=== PATIENT | female | born 1955 | race Caucasian/White ===

== ENCOUNTER 2019-03-18 07:46 | Emergency (ER) | payer BC, OTHER ==
[~2019-03-18] VITALS: Ht 162.6 cm; Wt 75.7 kg
[2019-03-18 08:33] LABS: BASOPHIL % 0.3 % (0-2); PLATELET COUNT 272 x10^3mcL (130-400); RED CELL DISTRIBUTION WIDTH 14.1 % (11.5-14.5)
[2019-03-18 08:50] LABS: CALCIUM 9.1 mg/dL (8.5-10.1); CARBON DIOXIDE 25.3 mmol/L (21-32); CHLORIDE SERUM 96 mmol/L (98-107); CREATININE SERUM 0.8 mg/dL (0.6-1.0); GFR1 > 60 mL/min; GLUCOSE SERUM 123 mg/dL (74-106); POTASSIUM SERUM 4.5 mmol/L (3.5-5.1); SODIUM SERUM 132 mmol/L (136-145)
[2019-03-18 08:55] LABS: ALBUMIN 4.3 g/dL (3.4-5.0); ALKALINE PHOSPHATASE 75 U/L (46-116); ALT/SGPT 27 U/L (14-59); AST/SGOT 21 U/L (15-37); BILIRUBIN TOTAL 0.5 mg/dL (0.20-1.00); TOTAL PROTEIN, SERUM 7.7 g/dL (6.4-8.2)
[2019-03-18 10:21] LABS: UA SPECIFIC GRAVITY <=1.005 (1.005-1.035); microscopic required? YES; urine erythrocyte 1+ (NEGATIVE)
[2019-03-18 10:50] VITALS: BP 121/55
[2019-03-19] MEDS ORDERED: SULFAMETHOXAZOL1 TA3 PO (05:13)
[2019-03-19] MEDS ORDERED: ZESTRIL20 MG PO (05:13)
[2019-03-19] MEDS ORDERED: LANSOPRAZOLE30 M2 PO (05:13)
== END 2019-03-18 10:50 | disposition home or self-care (01) ==
LOC: ED 07:46
PROVIDERS: Emergency Medicine
DX: N39.0 Urinary tract infection, site not specified (principal); K29.70 Gastritis, unspecified, without bleeding; I10 Essential (primary) hypertension; Z98.51 Tubal ligation status; Z98.890 Other specified postprocedural states; Z88.0 Allergy status to penicillin
CPT/HCPCS: 36415; J1885; Q0162

== ENCOUNTER 2019-03-19 00:42 | Inpatient (IN) | payer BC, OTHER ==
[~2019-03-19] VITALS: Ht 154.9 cm; Wt 58.1 kg
[2019-03-19 00:46] VITALS: Ht 154.9 cm; Wt 58.1 kg
--- NOTE | 2019-03-19 00:53 | NUR ---
PT CAME TO ED CO UTI SYMPTOMS. PT STS SHE WAS SEEN HERE THIS MORNING. PT STS SHE FELLS LIKE SHE HAS TO "GO" BUT ONLY A FEW DROPS COMES OUT. PT STS SYMPTOMS START AFTER STARTING ABX. PT STS SHE HAS ABD PAIN ACCOMPANIED BY VOMITING, AFTER TAKING NORCO. NO S/S OF DISTRESS. RESP E/U. DR. TINOCO AT BEDSIDE FOR MSE. COMFORT MEASURES IMPLEMENTED. WILL CONTINUE TO MONITOR.
[2019-03-19 01:30] LABS: BASOPHIL % 0.4 % (0-2); PLATELET COUNT 233 x10^3mcL (130-400); RED CELL DISTRIBUTION WIDTH 12.8 % (11.5-14.5)
[2019-03-19 01:40] LABS: CALCIUM 8.5 mg/dL (8.5-10.1); CARBON DIOXIDE 23.3 mmol/L (21-32); CHLORIDE SERUM 93 mmol/L (98-107); CREATININE SERUM 0.8 mg/dL (0.6-1.0); GFR1 > 60 mL/min; GLUCOSE SERUM 133 mg/dL (74-106); POTASSIUM SERUM 3.7 mmol/L (3.5-5.1); SODIUM SERUM 127 mmol/L (136-145)
[2019-03-19 01:46] LABS: ALBUMIN 3.9 g/dL (3.4-5.0); ALKALINE PHOSPHATASE 65 U/L (46-116); ALT/SGPT 26 U/L (14-59); AST/SGOT 19 U/L (15-37); BILIRUBIN TOTAL 0.47 mg/dL (0.20-1.00); LIPASE 120 IU/L (73-393); TOTAL PROTEIN, SERUM 6.8 g/dL (6.4-8.2)
--- NOTE | 2019-03-19 02:07 | NUR ---
PT PROVIDED SOCKS AND A WARM BLANKET FOR COMFORT. NO S/S OF DISTRESS. RESP E/U. PT STS SHE IS FEELING A LITTLE BETTER AFTER INFUSION OF SOME OF THE FLUIDS. WILL CONTINUE TO MONITOR.
--- NOTE | 2019-03-19 04:29 | NUR ---
BLADDER SCAN PREFORMED 202ML IN BLADDER.
--- NOTE | 2019-03-19 04:44 | NUR ---
PT MEDICATED PER ORDER. PT VERBALIZED UNDERSTANDING OF MEDICATION TEACHING. SEE EMAR FOR DETAILS.
[2019-03-19] MEDS ORDERED: SULFAMETHOXAZOL1 TA3 PO (05:13)
[2019-03-19] MEDS ORDERED: ZESTRIL20 MG PO (05:13)
[2019-03-19] MEDS ORDERED: LANSOPRAZOLE30 M2 PO (05:13)
[2019-03-19 05:50] LABS: CHOLESTEROL/HDL RATIO 2.9; MAGNESIUM 1.5 mg/dL (1.8-2.4)
[2019-03-19 05:58] LABS: T3 TOTAL 0.92 ng/mL
[2019-03-19 05:59] LABS: FREE T4 1.07 ng/dL (0.76-1.46); FREE THYROXINE INDEX 2.6 ug/dL (1.4-4.5); T4(THYROXINE) 7.5 ug/dL (4.7-13.3)
--- NOTE | 2019-03-19 07:37 | NUR ---
REPORT GIVEN TO NORMA CEJA ON MED/SURG UNIT TO ASSUME CARE OF PT.
--- NOTE | 2019-03-19 08:15 | NUR ---
RECEIVED PATIENT VIA GURNEY FROM ED. PATIENT DENIES NAUSEA/VOMITTING AT THIS TIME. DENIES PAIN. PATIENT IS A/O X4, NO C/O HEADACHE. LUNG SOUNDS CLEAR BILATERALLY. BOWEL SOUNDS ACTIVE X4, PATIENT STATES SHES HAD NORMAL BM ON 03/18/19. PATIENT C/O OF URINE FREQUENCY, WITH BURNING SENSATION AND DYSURIA. ORANGE URINE NOTED. SKIN INTACT. NS IV INFUSING TO RIGHT AC AT 100ML/HR, IV SITE CDI & PATENT, NO S/S OF INFILTRATION. BED IN LOW POSITION, FOR SAFETY PRECAUTION. WILL CONTINUE TO MONITOR FOR CHANGES.
[2019-03-19 10:23] VITALS: BP 145/77
[2019-03-19 14:01] LABS: microscopic required? YES; urine erythrocyte TRACE (NEGATIVE)
[2019-03-19 14:25] LABS: AMPHETAMINE QUAL UR NONE DETECTED (See below)
--- NOTE | 2019-03-19 14:30 | NUR ---
DR. CALABRESE AWARE PATIENT MAG WAS 1.5, NA WAS 127. DR. CALABRESE AWARE A1C WAS 6.4. NO FURTHER ORDERS AT THIS TIME. WILL CONTINUE TO MONITOR.
[2019-03-19 16:51] VITALS: BP 138/63
--- NOTE | 2019-03-19 17:10 | NUR ---
PATIENT SITING UP IN BED, EATING DINNER. PATIENT TOLERATING CLEAR LIQUID DIET. PATIENT DENIES NAUSEA & VOMITTING. ALL NEEDS MET AT THIS TIME. WILL CONTINUE TO MONITOR PATIENT.
--- NOTE | 2019-03-19 17:51 | NUR ---
PATIENT SITING UP IN BED, WATCHING TV. NO ACUTE CHANGES NOTED THROUGH OUT SHIFT. PATIENT DENIES PAIN. NS IV INFUSING TO RAC AT 100ML//HR, IV SITE CDI &PATENT, NO S/S OF INFILTRATION. CALL LIGHT WITHIN REACH, BED IN LOW POSITION, WILL CONTINUE TO MONITOR.
--- NOTE | 2019-03-19 18:00 | NUR ---
REMINDED DR. CALABRESE PATIENT MAG WAS 1.5, NO FURTHER ORDERS AT THIS TIME. WILL CONTINUE TO FOLLOW UP WITH ANY NEW ORDERS.
--- NOTE | 2019-03-19 19:45 | NUR ---
RECEIVED REPORT FROM DAY SHIFT RN. PT RESTING IN BED. AA&O X4. NO SOB ON ROOM AIR. NO C/O PAIN AT THIS TIME. IV TO RAC, NS INFUSING. SAFETY MEASURES IN PLACE. BED IN LOWEST POSITION. SIDE RAILS UP X2. INSTRUCTED PT TO USE THE CALL LIGHT FOR ASSISTANCE. CALL LIGHT WITHIN REACH. SON AT BEDSIDE.
[2019-03-19 21:10] VITALS: BP 112/67
[2019-03-20 05:51] VITALS: BP 129/76
--- NOTE | 2019-03-20 06:19 | NUR ---
PT RESTED IN LONG INTERVALS DURING SHIFT. NO SOB ON ROOM AIR. NO C/O PAIN. NO DISTRESS NOTED. PT STATES "FEELING MUCH BETTER". SAFETY MEASURES MAINTAINED. ALL NEEDS ATTENDED TO. BED IN LOWEST POSITION. SIDE RAILS UP X2. CALL LIGHT WITHIN REACH. WILL CONTINUE TO MONITOR AND ENDORSE CONTINUITY OF CARE TO DAY SHIFT RN.
[2019-03-20 06:22] LABS: BASOPHIL % 0.6 % (0-2); PLATELET COUNT 232 x10^3mcL (130-400); RED CELL DISTRIBUTION WIDTH 14.3 % (11.5-14.5)
[2019-03-20 06:23] LABS: CARBON DIOXIDE 24.7 mmol/L (21-32); CHLORIDE SERUM 107 mmol/L (98-107); CREATININE SERUM 0.8 mg/dL (0.6-1.0); GFR1 > 60 mL/min; GLUCOSE SERUM 90 mg/dL (74-106); MAGNESIUM 1.6 mg/dL (1.8-2.4); POTASSIUM SERUM 4.1 mmol/L (3.5-5.1); SODIUM SERUM 140 mmol/L (136-145)
--- NOTE | 2019-03-20 07:25 | NUR ---
PT IS AAOX4. LUNG SOUNDS CTA, ON R/A. NORMAL S1S2 NOTED. ABDOMEN SOFT, NONTENDER, NONDISTENDED. BOWEL SOUNDS ACTIVE X4 QUADS. PT DENIES N/V/D AND CONSTIPATION. PT HAS C/O OF PAIN UPON URINATION WITH DX OF UTI AND CYSTITIS. PT EDUCATED TO DRINK PLENTY OF FLUIDS. PT VERBALIZED UNDERSTANDING. IV CATH TO LFA, SITE WNL. NO S/S OF INFECTION OR INFILTRATION NOTED. CALL LIGHT WITHIN REACH. BED IN LOWEST POSITION.
[2019-03-20 08:07] VITALS: BP 135/69
--- NOTE | 2019-03-20 09:18 | NUR ---
TYLENOL 650MG PO GIVEN FOR SHARP PAIN UPON URINATION 11/02. EXTRA FLUIDS ENCOURAGED. DUE MED GIVEN AND TOLERATED WELL. VISITING AT BEDSIDE. WILL CONTINUE TO MONITOR.
--- NOTE | 2019-03-20 10:56 | NUR ---
ROCEPHIN IV HELD, PT HAS NOT HAD BLOOD CX OR URING CX ORDERED. DR. CALABRESE AND [place] [facility]IST MADE AWARE. IV CATH TO RAC PULLED OUT INTACT. SITE WNL. COVERED WITH GAUZE AND BANDAID. NEW IV CATH 22 G STARTED ON LFA ON THIRD ATTEMPT. SITE WNL, COVERED WITH CDI OCCLUSIVE DRESSING. DUE MEDS GIVEN. RESP EVEN AND UNLABORED. NO DISTRESS NOTED. AT BEDSIDE. CALL LIGHT WITHIN REACH.
--- NOTE | 2019-03-20 10:59 | NUR ---
DR. GREEN AND MED TEAM MET WITH PT AND DISCUSSED POC. PT LABS WILL BE EVALUATED AND PT WILL RECEIVE ORDERS FOR PAIN MEDICATION AND LORATDINE FOR ALLERGIES. PT AGREED WITH POC.
--- NOTE | 2019-03-20 12:30 | NUR ---
[facility] . AND GAVE REPORT TO NORMA GARRIDO. PT TO ADMIT TO UNIT ONE.
--- NOTE | 2019-03-20 13:47 | NUR ---
DUE MEDS GIVEN AND TOLERATED WELL. PT DENIES PAIN AT THIS TIME. NO DISTRESS NOTED. CALL LIGHT WITHIN REACH.
--- NOTE | 2019-03-20 17:14 | NUR ---
MAG OX 400MG PO GIVEN FOR MAG LEVEL OF 1.6. DUE MEDS GIVEN AND TOLERATED WELL. EXTRA FLUIDS GIVEN. PT DENIES PAIN AT THIS TIME. CALL LIGHT WITHIN REACH.
[2019-03-20 17:23] VITALS: BP 149/77
--- NOTE | 2019-03-20 18:50 | NUR ---
PT IS AAOX4. RESP EVEN AND UNLABORED. NO DISTRESS NOTED. DENIES PAIN AT THIS TIME. IV CATH TO LFA, SITE WNL. NO S/S OF INFECTION NOTED. WILL ENDORSE ALL CARE TO NOC RN. CALL LIGHT WITHIN REACH. BED IN LOWEST POSTION.
--- NOTE | 2019-03-20 19:30 | NUR ---
PT SEEN, RESTING IN BED, ALERT AND ORIENTED, DENIES HEADACHE OR DIZZINESS, BREATHING EVEN AND UNLABORED, LUNG SOUNDS CLEAR, ON ROOM AIR WITH NO RESP DISTRESS NOTED, MEDSURG PT, DENIES CHEST PAIN, IVF INFUSING WELL, PULSES PALPABLE, NO EDEMA NOTED, AMBULATORY WITH STEADY GAIT, ABD SOFT AND FLAT WITH ACTIVE BS, NO BM AT THIS TIME, DENIES ABD PAIN, C/O OF PAIN UPON URINATING, NO DISTRESS NOTED, WILL KEEP TO MONITOR.
[2019-03-20 21:04] VITALS: BP 136/75
[2019-03-21 05:34] VITALS: BP 143/79
--- NOTE | 2019-03-21 05:47 | NUR ---
PT AWAKE AND RESTING IN BED, SLEPT ON AND OFF WHOLE NIGHT, IVF INFUSING WELL, MEDICATED TORADOL ONE TIME FOR ABD PAIN WITH GOOD RELIEF, NO FEVER SINCE BEGINNING OF SHIFT, NO DISTRESS NOTED, WILL KEEP TO MONITOR.
[2019-03-21 07:03] LABS: BASOPHIL % 0.5 % (0-2); PLATELET COUNT 212 x10^3mcL (130-400); RED CELL DISTRIBUTION WIDTH 14.3 % (11.5-14.5)
--- NOTE | 2019-03-21 07:14 | NUR ---
BEDSIDE HANDOFF REPIRT GIVEN TO Alireza, ALL QUESTIONS ANSWERED AND CONCERNS ADDRESSED.
[2019-03-21 07:19] LABS: CALCIUM 8.1 mg/dL (8.5-10.1); CARBON DIOXIDE 22.2 mmol/L (21-32); CHLORIDE SERUM 105 mmol/L (98-107); CREATININE SERUM 0.6 mg/dL (0.6-1.0); GFR1 > 60 mL/min; GLUCOSE SERUM 96 mg/dL (74-106); PHOSPHOROUS 3.6 mg/dL (2.5-4.9); POTASSIUM SERUM 3.6 mmol/L (3.5-5.1); SODIUM SERUM 138 mmol/L (136-145)
--- NOTE | 2019-03-21 07:30 | NUR ---
PT IS AAOX4. LUNG SOUNDS CTA. ON R/A. NO COUGH OR SOB. NORMAL S1S2 NOTED. ABDOMEN SOFT, NONTENDER, NONDISTENDED. BOWEL SOUNDS ACTIVE X4 QUADS. PT DENIES N/V/D AND CONSTIPATION. PT HAS C/O OF PAIN UPON URINATION. SKIN CDI. NO EDEMA. PERIPHERAL PULSES PALPABLE. IVF RUNNING TO LFA, SITE WNL. NO S/S OF INFECTION OR INFILTRATION. PT DENIES PAIN AT THIS TIME. CALL LIGHT WITHIN REACH. BED IN LOWEST POSITION.
[2019-03-21 08:53] VITALS: BP 147/61
--- NOTE | 2019-03-21 10:21 | NUR ---
DR. GREEN MET WITH PT AND DISCUSSED POC. PT WISHES TO STAY ONE MORE DAY TO ENSURE THE URINE AND BLOOD CX HAVE BEEN COMPLETED AND READ. PT WANTS TO ENSURE THAT SHE IS ON THE RIGHT ANITBIOTIC UPON DISCHARGE. DR. GREEN AND PT AGREED WITH POC.
[2019-03-21 17:02] VITALS: BP 142/61
--- NOTE | 2019-03-21 17:30 | NUR ---
DUE MED GIVEN AND TOLERATED WELL. PT DENIES PAIN AT THIS TIME. PT ABLE TO AMBULATE TO BATHROOM AND BACK TO BED INDEPENDENTLY WITH STEADY GAIT. CALL LIGHT WITHIN REACH.
--- NOTE | 2019-03-21 18:08 | NUR ---
PT IS UP OOB AMBULATING HALLWAY. RESP EVEN AND UNLABORED. NO SOB. IVF RUNNING TO [facility], SITE WNL. PT DENIES PAIN. WILL ENDORSE ALL CARE TO NOC NORMA.
--- NOTE | 2019-03-21 19:15 | NUR ---
RECEIVED PT SITTING UP IN CHAIR, NO ACUTE DISTRESS OBSERVED, DENIES PAIN OR DISCOMFORT AT THIS TIME. UCX GRAM (-) BACILLI, AWAITING SENSITIVITY. PT ADMITS TO MILD BURNING UPON URINATION, DENIES DYSURIA. VOIDS FREELY WITH BRP. AMBULATORY AND ABLE TO REPOSITION SELF IN BED. AAOX4, ABLE TO MAKE NEEDS KNOWN, SPEECH CLEAR AND APPROPRIATE. MED-SURG, NO TELE, NO CP. PULSES PALPABLE AND EQUAL THROUGHOUT, NO EDEMA. BREATHING ON RA, EVEN AND UNLABORED, NO SOB OR DYSPNEA. DENIES N/V/D. IV TO LFA IN PLACE, DRY, PATENT, INTACT, AND INFUSING IVF WELL, NO S&S PHLEBITIS OR INFILTRATION NOTED. COMFORT AND SAFETY MEASURES IN PLACE. ALL NEEDS ASSESSED AND ATTENDED TO. CALL LIGHT WITHIN REACH. WILL CONTINUE TO MONITOR
[2019-03-21 20:24] VITALS: BP 136/69
[2019-03-22 05:20] VITALS: BP 137/72
--- NOTE | 2019-03-22 05:36 | NUR ---
PT C/O BURNING PRESSURE TO MID CHEST, STATING SHE WANTS TO BURP BUT CANNOT. PT REQUESTING TO HAVE HER PRILOSEC EARLY, AT THIS TIME. GIVEN PER EMAR
--- NOTE | 2019-03-22 06:43 | NUR ---
NO SIGNIFICANT CHANGES TO REPORT, PT COMPLIED WITH NURSING CARE THROUGHOUT THE SHIFT WITH NO ACUTE EVENTS OVERNIGHT. NO ACUTE DISTRESS OBSERVED AT THIS TIME. PT LAYING IN BED, BREATHING EVEN AND UNLABORED. COMFORT AND SAFETY MEASURES MAINTAINED. ALL NEEDS ASSESSED AND ATTENDED TO. CALL LIGHT WITHIN REACH. WILL CONTINUE TO MONITOR AND ENDORSE CARE TO DAY SHIFT NURSE.
[2019-03-22 06:55] LABS: BASOPHIL % 0.5 % (0-2); PLATELET COUNT 215 x10^3mcL (130-400); RED CELL DISTRIBUTION WIDTH 13.8 % (11.5-14.5)
--- NOTE | 2019-03-22 07:05 | NUR ---
RECIEVED PT RESTING IN BED WITH NO C/O PAIN OR DISTRESS. A/O X4 WITH NO ABBOTT OR DIZZINRESS. NS 100ML/HR RUNNING IN LFA, INTACT AND PATENT WITH NO REDNESS. SAFETY PRECAUTIONS IN PLACE, CALL LIGHT WITHIN REACH, WILL MONITOR.
[2019-03-22 07:14] LABS: CALCIUM 8.5 mg/dL (8.5-10.1); CARBON DIOXIDE 25.1 mmol/L (21-32); CHLORIDE SERUM 104 mmol/L (98-107); CREATININE SERUM 0.7 mg/dL (0.6-1.0); GFR1 > 60 mL/min; GLUCOSE SERUM 101 mg/dL (74-106); MAGNESIUM 1.9 mg/dL (1.8-2.4); PHOSPHOROUS 3.9 mg/dL (2.5-4.9); SODIUM SERUM 139 mmol/L (136-145)
[2019-03-22] MEDS ORDERED: FLO4 PO (10:01)
[2019-03-22] MEDS ORDERED: PYR100 PO (10:02)
[2019-03-22] MEDS ORDERED: MAC100 PO (10:23)
[2019-03-22 11:03] VITALS: BP 137/72
--- NOTE | 2019-03-22 12:17 | NUR ---
PT STABLE TO DISCHARGE PER MD ORDER. NO DISTRESS OR PAIN NOTED. ALL CARES TOLERATED WELL. ALL DISCHARGE INSTRUCTIONS, EDUCATION, AND PRESCRIPTIONS GIVEN TO PT, SHE VERBALIZES UNDERSTANDING. D/C FORMS SIGNED. IV REMOVED WITH CATHETER INTACT AND NO REDNESS OR INFLAMMATION NOTED TO SITE. ID BANDS REMOVED FROM PT ARM. PT ESCORTED DOWN TO LOBBY VIA WC BY PHYSICAL THERAPY RESIDENT AND AT SIDE. ALL PERSONAL BELONGINGS IN HAND.
== END 2019-03-22 12:22 | disposition home or self-care (01) | DRG 690 ==
LOC: ED 00:42 → MU 05:31
PROVIDERS: Emergency Medicine; General Practice; ADMIT Internal Medicine
DX: N39.0 Urinary tract infection, site not specified (principal); E87.1 Hypo-osmolality and hyponatremia; N20.1 Calculus of ureter; I10 Essential (primary) hypertension; Z83.3 Family history of diabetes mellitus; Z82.49 Family history of ischemic heart disease and other diseases of the circulatory system; E83.42 Hypomagnesemia; E87.8 Other disorders of electrolyte and fluid balance, not elsewhere classified
CPT/HCPCS: 83880; 84439; C9113; G0378; J0696; J1885; J2270; J2405; J3490; J7030; Q0092